=== PATIENT | female | born 1955 | race Caucasian/White ===

== ENCOUNTER 2019-04-16 10:02 | Emergency (ER) | payer MEDICARE ==
[2019-04-16] MEDS ORDERED: Tetan/Diph/Pertus SYR(Tdap)* 0.5 ML SYR(BOOSTRIX) use SYR contains LATEX IM ONE (10:36)
[2019-04-16] MEDS ORDERED: Acetaminophen TAB* 325 MG PO ONE (10:37)
[2019-04-16] MEDS ORDERED: Ondansetron ODT TAB* 4 MG PO ONE (10:37)
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
[2019-04-16] MEDS ORDERED: Silver Sulfadiazine 1% 400gm* 1 APPLIC JAR TOPICAL ONE (11:06)
[2019-04-16 11:27] LABS: Urine Benzodiazepine Screen None Detected (None Detect); Urine Opiates Screen None Detected (None Detect)
[2019-04-16 12:03] VITALS: BP 158/92
== END 2019-04-16 12:00 | disposition home or self-care (01) ==
LOC: ED 10:02
DX: T22.211A Burn of second degree of right forearm, initial encounter (principal); T23.201A Burn of second degree of right hand, unspecified site, initial encounter; T21.22XA Burn of second degree of abdominal wall, initial encounter; T31.0 Burns involving less than 10% of body surface; Z23 Encounter for immunization; X15.0XXA Contact with hot stove (kitchen), initial encounter; Y92.009 Unspecified place in unspecified non-institutional (private) residence as the place of occurrence of the external cause; I10 Essential (primary) hypertension; E78.00 Pure hypercholesterolemia, unspecified; Z85.3 Personal history of malignant neoplasm of breast; Z79.82 Long term (current) use of aspirin; Z79.899 Other long term (current) drug therapy
CPT/HCPCS: 80307; 90471; 90715; 99283; A9270-GY